=== PATIENT | female | born 1975 | race Hispanic/Latino ===

== ENCOUNTER 2017-12-21 17:03 | Emergency (ER) | payer SELFPAY ==
[2017-12-21] MEDS ORDERED: HYDROcodone/Acetaminophen 10/325 mg Tablet ONE (17:25)
[2017-12-21] MEDS ORDERED: Adacel (T-DAP) 0.5 ML VIAL ONE (17:25)
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
== END 2017-12-21 18:49 | disposition home or self-care (01) ==
LOC: ERS 17:03
DX: S06.0X9A Concussion with loss of consciousness of unspecified duration, initial encounter (principal); S16.1XXA Strain of muscle, fascia and tendon at neck level, initial encounter; S50.02XA Contusion of left elbow, initial encounter; V89.2XXA Person injured in unspecified motor-vehicle accident, traffic, initial encounter
CPT/HCPCS: 70450; 72125; 90471; 90715